=== PATIENT | female | born 1985 | race Caucasian/White ===

== ENCOUNTER → 2024-08-05 | Outpatient (CLI) | payer OTHER ==
[~2024-08-05] MED LIST: AZIT500T5 PO; BENZ200C70 PO
== END ==
LOC: M WUC 14:37
PROVIDERS: ATTEND Physician Assistant
DX: R06.02 Shortness of breath (principal); R53.1 Weakness; J06.9 Acute upper respiratory infection, unspecified

== ENCOUNTER 2024-08-09 17:47 | Emergency (ER) | payer OTHER ==
[~2024-08-09] VITALS: Ht 167.6 cm; Wt 56.1 kg
[2024-08-09 17:56] VITALS: TEMP 98.6
[2024-08-09 18:54] LABS: BASO % 0.3 % (0.0-1.0); EOS % 0.1 % (0.0-3.0); HEMATOCRIT 37.3 % (36.0-47.0); LYMPH % 13.6 % (24.0-44.0); MEAN CORPUSCULAR HEMOGLOBIN 30.7 pg (27.0-33.0); MEAN CORPUSCULAR HGB CONC 34.9 g/dl (32.0-36.5); MEAN CORPUSCULAR VOLUME 88.2 fl (80.0-96.0); MONO # 0.5 10^3/uL (0.0-0.8); MONO % 6.4 % (2.0-8.0); NEUTROPHILS # 5.8 10^3/uL (1.5-8.5); NEUTROPHILS % 78.1 % (36.0-66.0); PLATELET COUNT, AUTOMATED 276 10^3/uL (150-450); RED BLOOD COUNT 4.23 10^6/uL (4.00-5.40); WHITE BLOOD COUNT 7.4 10^3/uL (4.0-10.0)
[2024-08-09 19:19] LABS: BLOOD UREA NITROGEN 10 MG/DL (9-23); CALCIUM LEVEL 8.5 MG/DL (8.5-10.1); CARBON DIOXIDE LEVEL 25 MMOL/L (20-31); CHLORIDE LEVEL 105 MMOL/L (98-107); CREATININE FOR GFR 0.62 MG/DL (0.55-1.30); GLOMERULAR FILTRATION RATE > 60.0 (>60); GLUCOSE, FASTING 99 MG/DL (60-100); POTASSIUM SERUM 4.1 MMOL/L (3.5-5.1); SODIUM LEVEL 142 MMOL/L (136-145)
[2024-08-09 20:42] VITALS: BP 119/78; O2SAT 95
[2024-08-09] MEDS ORDERED: BENZ200C70 PO (21:19)
[2024-08-09] MEDS ORDERED: AZIT500T5 PO (21:19)
[2024-08-09] MEDS: BENZONATATE 100MG CAPSULE PO ONE (21:27)
[2024-08-09] MEDS: AZITHROMYCIN 250MG TABLET PO ONE (21:27)
== END 2024-08-09 21:30 | disposition home or self-care (01) ==
LOC: EDBD 17:47 → M ED 17:47
DX: J15.7 Pneumonia due to Mycoplasma pneumoniae (principal); Z79.2 Long term (current) use of antibiotics; Z79.899 Other long term (current) drug therapy

== ENCOUNTER → 2024-08-29 | Outpatient (CLI) | payer OTHER | LOC: M EKG 12:59 | PROVIDERS: ATTEND Internal Medicine | DX: R00.2 Palpitations (principal) ==